=== PATIENT | female | born 1980 | race Caucasian/White ===

== ENCOUNTER 2016-11-27 02:17 | Emergency (ER) | payer BC ==
[~2016-11-27] VITALS: Ht 156.2 cm; Wt 102.8 kg
[~2016-11-27 02:17] MED LIST: ACET325T51 PO; AMIT100T2 PO; OMEP40CA52 PO; PRED10TA PO; PROP80TA4 PO; TOPI100T9 PO
--- OUTSIDE RECORDS SUMMARY | 2016-11-27 02:22 | XMS REPORT | Continuity of Care Document ---
Author Author [facility] Organization [facility] Address Unknown Phone Unavailable Support Name Relationship Address Phone MICHELLE CHO MD Caregiver [address] [place] [address] Unavailable LAURIE SIMMS APRN Caregiver [address] [place] [address] Unavailable ALIREZA KIRKPATRICK Next Of Kin [address] [place] [address] Insurance Providers Guarantor Hero Kirkpatrick Address [address] [place] [address] Email 10-08-16 [facility] Policy Number [id number] Subscriber's Name Hero Kirkpatrick Relationship 18 Self Group Number [id number] Advance Directives Directive Response Recorded Date/Time Advanced Directives Type None 10/10/16 3:55am Chief Complaint and Reason for Visit Chief Complaint Allergic Reaction Reason for Visit Urticaria [id number] Problems Active Problems Medical Problem Onset Date Status Upper respiratory infection Unknown Acute Past Problems Medical Problem Onset Date Migraine Unknown Minor head injury Unknown Reaction, drug, adverse Unknown Sciatica Unknown Urticaria Unknown Medications Current Home Medications Medication Dose Units Route Directions Days Qty Instructions Start Date Acetaminophen 325 Mg Tablet 650 Mg Oral Four Times Daily as needed for Pain 08/23/16 Amitriptyline Hcl 100 Mg Tablet 100 Mg Oral Bedtime 09/18/15 Omeprazole 40 Mg Capsule.dr 40 Mg Oral Bedtime 07/19/16 Prednisone 10 Mg Tablet 0 Oral Taper Qd 18 Tablet 30 mg daily x3 days 20 mg daily x3 days 10 mg daily x2 days 10/10/16 Propranolol Hcl 80 Mg Tablet 80 Mg Oral Twice A Day 09/18/15 Topiramate (Topamax) 100 Mg Tablet 100 Mg Oral Twice A Day Social History Social History Problem Response Recorded Date/Time Onset Date Status Chewing Tobacco Status No 10/10/2016 4:27am Not Applicable Not Applicable Hx Substance Use No 10/10/2016 4:27am Not Applicable Not Applicable Hx Alcohol Use N OCCASIONAL 10/10/2016 4:27am Not Applicable Not Applicable Tobacco Usage smoke 09/18/2015 3:31am Not Applicable Not Applicable Query Response Start Date Stop Date Smoking Status Current every day smoker Hospital Discharge Instructions No hospital discharge instructions. Plan of Care Discharge Date 10/10/16 4:47am Disposition 01 DISCHARGED HOME, SELF-CARE Condition at Discharge Improved Instructions/Education Provided General Allergic Reaction (ED) Prescriptions See Medication Section Referrals LAURIE SIMMS APRN Address: [address] [place] [address] [phone] Additional Instructions/Education Prednisone 10 mg tabs, 3 tabs a day for 3 days, 2 tabs a day for 3 days, 1 TAB a day for 3 days. Ventolin inhaler, 1-2 puffs every 4 hours as needed. Discontinue taking the gabapentin, speak with your medical provider in the morning. Functional Status No functional status results. Allergies, Adverse Reactions, Alerts Allergen Type Severity Reaction Status Last Updated Lisinopril Allergy Intermediate Active 08/23/16 Hydrocodone Allergy Intermediate Active 08/23/16 Methotrexate Allergy Intermediate Active 08/23/16 adhesive tape Allergy Intermediate Active 08/23/16 Immunizations Query Response on File Recorded Date/Time Influenza Vaccine Hx MAY 2016 10/10/16 4:27am Tetanus Diptheria Vaccine History UP TO DATE 10/10/16 4:27am Vital Signs Acute Vital Signs Vital Response Date/Time Temperature (Fahrenheit) 98.7 deg F (96.8 - 99.1) 10/10/2016 4:47am Temperature (Calculated Celsius) 37.83444 degrees C (36.0 - 37.3) 10/10/2016 4:47am Pulse Rate (adult) 87 bpm (60 - 100) 10/10/2016 4:47am Respiratory Rate 20 breaths/min (10 - 20) 10/10/2016 4:47am O2 Sat by Pulse Oximetry 98 % (90 - 100) 10/10/2016 4:47am Blood Pressure 174/82 mm Hg 10/10/2016 4:47am Height (Feet) 5 feet 10/10/2016 3:55am Height (Inches) 1.00 inches 10/10/2016 3:55am Weight (Kilograms) 105.100 kg 10/10/2016 3:55am Body Mass Index (BMI) 43.0 10/10/2016 3:55am Results No known relevant diagnostic tests, laboratory data and/or discharge summary. Procedures Procedure Status Date Provider(s) Ther/proph/diag inj sc/im Completed 07/19/16 Ther/proph/diag inj sc/im Completed 07/19/16 Ther/proph/diag inj sc/im Completed 07/19/16 Emergency dept visit Completed 07/19/16408436"INJECTION, HYDROMORPHONE, UP TO 4 MG" Completed 07/19/16"INJECTION, DIPHENHYDRAMINE HCL, UP TO 50 MG" Completed 07/19/16"INJECTION, KETOROLAC TROMETHAMINE, PER 15 MG" Completed 07/19/16"INJECTION, PROMETHAZINE HCL, UP TO 50 MG" Completed 07/19/16 Ct head/brain w/o dye Completed 08/23/16 Ther/proph/diag inj sc/im Completed 08/23/16 Ther/proph/diag inj sc/im Completed 08/23/16 Emergency dept visit Completed 08/23/16 [id number]"INJECTION, HYDROMORPHONE, UP TO 4 MG" Completed 08/23/16 [id number]"INJECTION, PROMETHAZINE HCL, UP TO 50 MG" Completed 08/23/16 Encounters Encounter Location Arrival/Admit Date Discharge/Depart Date Attending Provider Departed Emergency Room [facility] 10/10/16 3:53am 10/10/16 4: 47am MICHELLE CHO MD Departed Emergency Room [facility] 08/23/16 2:37pm 08/23/16 5: 13pm MICHELLE CHO MD Departed Emergency Room [facility] 07/19/16 12:35pm 07/19/16 3: 01pm MICHELLE JOHNSON MD Recent Diagnosis
--- OUTSIDE RECORDS SUMMARY | 2016-11-27 02:22 | XMS REPORT ---
Author Author Chikis Teixeira [facility] Spec Address [address] [place] [address] Care Team Providers Care Digital Program Manager Name Role Phone Chikis Teixeira Unavailable [phone] PROBLEMS Type Condition ICD9-CM Code [id number] Code Onset Dates Condition Status SNOMED Code Problem Hypertension 401.9 Active 95879426 Problem Generalized anxiety disorder F41.1 Active 01602630 Problem Psoriatic arthritis L40.50 Active 921947299 Problem GERD 530.81 Active 206504336 Problem Seasonal allergies 477.9 Active 434061468 Problem Headache, migraine 346.90 Active 88307372 Problem Psoriasis 696.1 Active 7837307 ALLERGIES Unknown Allergies SOCIAL HISTORY No smoking Hx information available PLAN OF CARE VITAL SIGNS MEDICATIONS Unknown Medications RESULTS No Results PROCEDURES No Known procedures IMMUNIZATIONS No Known Immunizations
--- OUTSIDE RECORDS SUMMARY | 2016-11-27 02:23 | XMS REPORT | Referral Summary ---
Author Author [facility] Organization [facility] Address Unknown Phone Unavailable Care Team Providers Care Medical Records Field Technician Name Role Phone Henri Granados Primary Care Physician [phone] Encounter Date(s): 09/23/16 - 09/23/16 [facility] [address] [place] [address] NANCY Pérez [id number] Discharge Diagnosis: Joint pain Discharge Diagnosis: Psoriasis Discharge Diagnosis: Morbid obesity Discharge Diagnosis: Smoking Discharge Disposition: 01-Home or Self Care Attending Physician: Norma Asif MD Admitting Physician: Norma Asif MD Referring Physician: Tulio Granados MD Vital Signs Most recent to 1 oldest [Reference Range]: Peripheral Pulse 60 bpm Rate [60-100 bpm] (09/23/16 10:22 AM) Blood Pressure 136/90 mmHg [90-140/60-90 mmHg] (09/23/16 10:22 AM) Problem List Condition Effective Dates Status Health Status Informant Morbid Active patient obesity(Confirmed) Allergies, Adverse Reactions, Alerts Substance Reaction Severity Status acetaminophen-HYDROcodone Adverse Reaction Active lisinopril Anaphylaxis Severe Active methotrexate1 Active 1causes migraine Medications amitriptyline 100 mg, Oral, Bedtime (once a day), 0 Refill(s) Start Date: 09/23/16 Status: Ordered omeprazole 40 mg, Oral, Daily, 0 Refill(s) Start Date: 09/23/16 Status: Ordered predniSONE See Instructions, taper dose, 0 Refill(s) Start Date: 09/23/16 Status: Ordered propranolol 80 mg, BID, 0 Refill(s) Start Date: 09/23/16 Status: Ordered Topamax 100 mg oral tablet mg tabs, Oral, BID, 0 Refill(s) Start Date: 09/23/16 Status: Ordered Results Hematology Most recent to 1 oldest [Reference Range]: WBC [4.8-10.8 25.6 10*3/uL 10*3/uL] *HHI* (09/23/16 11:53 AM) RBC [4.00-5.20] 4.59 (09/23/16:53 AM) Hgb [12.0-16.0 13.0 gm/dL gm/dL] (09/23/16:53 AM) Hct [37.0-47.0 %] 41.5 % (09/23/16:53 AM) MCV [82.0-99.0 fL] 90.4 fL (09/23/16:53 AM) MCH [27.0-32.0 pg] 28.3 pg (09/23/16:53 AM) MCHC [32.0-36.0 31.3 gm/dL gm/dL] *LOW* (09/23/16 11:53 AM) RDW [11.5-14.5 %] 15.3 % *HI* (09/23/16 11:53 AM) Platelet [150-400 346 10*3/uL 10*3/uL] (09/23/16 11:53 AM) MPV [8.8-14.8 fL] 11.6 fL (09/23/16 11:53 AM) Neutrophils [51-75 60 % %] (09/23/16 11:53 AM) Lymphocytes [20-46 34 % %] (09/23/16 11:53 AM) Abn Lymph Man [0-5 2 % %] (09/23/16:53 AM) Monocytes [4-11 %] 3 % *LOW* (09/23/16 11:53 AM) Eosinophils [0-4 %] 0 % (09/23/16 11:53 AM) Basophils [0-2 %] 1 % (09/23/16 11:53 AM) Neutro Absolute 15.36 [1.90-7.00] *HI* (09/23/16 11:53 AM) Lymph Absolute 9.22 [0.80-3.30] *HI* (09/23/16 11:53 AM) [place] Absolute 0.77 [0.30-1.00] (09/23/16 11:53 AM) Eos Absolute 0.00 [0.00-0.50] (09/23/16 11:53 AM) Baso Absolute 0.26 [0.00-0.20] *HI* (09/23/16:53 AM) Differential Manual *ABN* (09/23/16:53 AM) Sed Rate [0-23] 6 (09/23/16:53 AM) Chemistry Most recent to 1 oldest [Reference Range]: Sodium Lvl [135-144 144 mEq/L mEq/L] (09/23/16:53 AM) Potassium Lvl 3.4 mEq/L [3.5-5.2 mEq/L] *LOW* (09/23/1653 AM) Chloride [99-111 111 mEq/L mEq/L] (09/23/16:53 AM) CO2 [22-31 mEq/L] 26 mEq/L (09/23/16:53 AM) AGAP [3-20] 7 (09/23/16:53 AM) BUN [7-19 mg/dL] 18 mg/dL (09/23/16:53 AM) Glucose Lvl [70-99 77 mg/dL mg/dL] (09/23/16:53 AM) Creatinine Lvl 0.86 mg/dL [0.57-1.11 mg/dL] (09/23/16:53 AM) eGFR [>60 mL/min] >60 mL/min 1 (09/23/16:53 AM) Calcium Lvl 8.7 mg/dL 2 [8.4-10.2 mg/dL] (09/23/16:53 AM) Albumin Lvl [3.5-5.0 3.4 gm/dL gm/dL] *LOW* (09/23/16:53 AM) Total Protein 6.1 gm/dL [6.1-7.7 gm/dL] (09/23/16:53 AM) Globulin [1.8-4.0 2.7 gm/dL gm/dL] (09/23/16 11:53 AM) ALT [0-55 U/L] 13 U/L (09/23/16:53 AM) AST [5-34 U/L] 8 U/L (2/7/17 11:53 AM) Alk Phos [40-150 69 U/L U/L] (09/23/16 11:53 AM) Bili Total [0.2-1.2 0.3 mg/dL mg/dL] (09/23/16 11:53 AM) Hepatitis B Core Ab Negative Total (09/23/16 11:53 AM) Hep C Ab Negative (09/23/16 11:53 AM) 1Result Comment: Multiply eGFR results by 1.21 for race. 2Result Comment: Please note reference range change effective 09/19/2016. Immunizations No data available for this section Procedures Procedure Date Related Diagnosis Body Site Collection of venous blood by venipuncture 09/23/16 Hx of cholecystectomy Hx of tonsillectomy Social History Social History Type Response Smoking Status Current every day smoker; Type: Cigarettes Assessment and Plan No data available for this section
--- OUTSIDE RECORDS SUMMARY | 2016-11-27 02:23 | XMS REPORT | Continuity of Care Document ---
Author Author [facility] Organization [facility] Address Unknown Phone Unavailable Allergies Active Description Code Type Severity Reaction Onset Reported/Identified Relationship to Patient Clinical Status Yes acetaminophen Drug Allergy Unknown HIVES 09/10/2013 Yes hydrocodone bit Drug Allergy Unknown HIVES 09/10/2013 Yes lisinopril Drug Allergy Unknown HIVES 09/10/2013 Yes Methotrexate Drug Allergy Unknown MIGRAINE VILCHIS 09/10/2013 Yes acetaminophen acetaminophen Drug Allergy Unknown HIVES 02/15/2015 Yes hydrocodone bit hydrocodone bit Drug Allergy Unknown HIVES 06/15/2015 Yes lisinopril lisinopril Drug Allergy Unknown HIVES 06/15/2015 Yes methotrexate methotrexate Drug Allergy Unknown MIGRAINE VILCHIS 06/15/2015 Medications Problems Date Dx Coded Attending Type Code Diagnosis Diagnosed By 09/10/2013 Lucrecia OWENS, Adina Ricks 784.0 HEADACHE Procedures Results Encounters ACCT No. Visit Date/Time Discharge Status Pt. Type Provider Facility Loc./Unit Complaint [id number] 09/10/2013 16:51:00 2013 18:14:00 DIS Emergency Lucrecia OWENS, Adina Hill [facility] W.JOSE [id number] 08/16/2013 17:51:00 2012 18:55:00 DIS Emergency Osmin Spann DO [facility] W[facility]JOSE [id number] 12/31/2012 21:32:00 2012 22:31:00 DIS Emergency Corwin OWENS, Elvira Smith [facility] W.JOSE
[2016-11-27 02:34] VITALS: TEMP 98; Ht 156.2 cm; Wt 102.8 kg
[2016-11-27] MEDS ORDERED: CYCL-375 PO (02:55)
--- NOTE | 2016-11-27 02:55 | ERPDOC ---
Departure Disposition Decision Date: Nov 27, 2016 Disposition Decision Time: 02:53 Disposition: 01 DISCHARGED HOME, SELF-CARE Impression Impression Impression: Primary Impression: Snapping hip syndrome Laterality: right Qualified Codes: M24.851 - Other specific joint derangements of right hip, not elsewhere classified Severity: Moderate Condition: Stable Seen By: Physician only Referrals: LAURIE SIMMS APRN (Family) 1 Week Patient Instructions: Hip Pain (ED) Problems/Meds/Labs Reviewed?: Yes Medications reviewed and manag: Yes Additional Instructions: You have snapping hip syndrome. Heat, muscle relaxers, NSAIDs, and physical therapy all work together to improve this. Follow up with your doctor for referral to physical therapy and to monitor your progress. Follow up care ordered?: Yes Mental Status: Alert, Oriented Scripts Cyclobenzaprine HCl (Cyclobenzaprine HCl) 10 Mg Tablet 10 MG PO TID Y for MUSCLE SPASM, #40 TAB 0 Refills Prov: DECEMBER,MATTEO Tripathi DO 11/27/16 HPI - Lower Extremity General Chief Complaint: Lower Extremity Pain Stated Complaint: R HIP PAIN Time Seen by Provider: 02:45 Source: patient Exam Limitations: no limitations HPI - Lower Extremity Initial Comments 36yo woman presents to the ER tonight with right hip pain. Pt has a h/o hip pain , that improved with heat, muscle relaxers, and physical therapy. Pts sx today are identical to her previous sx. At that time, she was dx'ed with snapping hip syndrome. For the last 5 days, pt has had hip pain, a popping/snapping sensation when sitting from lying, and pain with physical exertion. Sx are markedly improved with rest and sitting on her heated seats in her car. Occurred At: home Onset/Timing: Gradual, Getting worse Duration: 1 week Pain/Severity Scale: Now & Worst: 5/10 Severity: moderate Pain/Injury Location: right hip Method of Injury: unknown Modifying Factors/Context: IMPROVES WITH: immobilization, other (heat), WORSE WITH: jarring, movement Allergies: Coded Allergies: adhesive tape (Verified Allergy, Intermediate, 11/27/16) hydrocodone (Verified Allergy, Intermediate, 11/27/16) lisinopril (Verified Allergy, Intermediate, 11/27/16) methotrexate (Verified Allergy, Intermediate, 11/27/16) Past History Patient Medical History (1) Snapping hip syndrome Past Medical History Metabolic: hypertension ENMT: allergies GI: GERD Neurological: migraines Integumentary: psoriasis Surgical History Denies Surgeries Social History Substance Use Type: does not use Alcohol Intake: none Review of Systems Musculoskeletal General: joint pain, see HPI All other Systems All Other Systems: Reviewed and Negative Physical Exam General General Nourishment: well nourished, well developed, appears stated age, no acute distress, adult, obese General Body Habitus: well groomed Vitals and Pain First Documented Vital Signs Date Time Temp Pulse Resp B/P Pulse Ox O2 Delivery O2 Flow Rate FiO2 11/27/16 02:34 98.0 101 18 134/107 95 Room Air Weight: Kilograms: Height (feet): 5 Height (inches): 1.00 Triage Pain Scale: RN VS reviewed by Provider: Yes Musculoskeletal (brief) Musculoskeletal Brief: NOT FOUND: deformity, loss of motion, spasm, tenderness Comments Pain with hip flexion. Flexion reproduces snapping/popping sensation. Pain along the course of pts psoas muscle. Supervisory Exam Head: atraumatic Eyes: PERRL Nares: no exudate Neck: trachea midline Chest: symmetric Abdomen: non-distended Neurological: no abnormal movements Skin: pink, dry Psychological: alert, appropriate Differential Diagnoses Considering: Cartilage Tear, Contusion, Dislocation, Sprain, Strain Progress Results/Orders Orders Procedure Category Date Status Time Cyclobenzaprine PHA 11/27/16 Complete (Prepack) (Flexeril 03:00 Medications Current ED Medications Cyclobenzaprine HCl (FLEXERIL (PrePack)) 1 pack O ONCE SENT HOME Last administered on 11/27/16t 03:33; Start 11/27/16 at 03:00; Stop 11/27/16 at 03:01 ; Status DC Progress Progress 36yo woman with classic presentation of snapping hip syndrome. Pt has had this before and is well-versed in how to treat it. Will d/c to home with muscle relaxers and instructions on how to care for her symptoms. F/u with PCM. Pt voiced understanding of dx, prognosis, and tx. MATTEO MAIN DO Nov 27, 2016 02:55
[2016-11-27] MEDS ORDERED: CYCLOBENZAPRINE 10MG (PrePack) SENT HOME ONE (03:00)
[2016-11-27 03:35] VITALS: BP 122/75; PULSE 86; RESP 16; O2SAT 100
--- NOTE | 2016-11-27 03:35 | NUR ---
DEPART PT IS DISCHARGED AT THIS TIME, INSTRUCTIONS ARE REVIEWED AND UNDERSTANDING IS VOICED. PT LEAVES AMBULATORY.
--- OUTSIDE RECORDS SUMMARY | 2016-11-27 03:41 | XMS REPORT | Continuity of Care Document ---
Author Author [facility] Organization [facility] Address Unknown Phone Unavailable Allergies [...] Status Pt. Type Provider Facility Loc./Unit Complaint [id number] 09/10/2013 16:51:00 2013 18:14:00 DIS Emergency Lucrecia OWENS, Adina Hill [facility] W.JOSE [id number] 08/16/2013 17:51:00 2012 18:55:00 DIS Emergency Osmin Spann DO [facility] [id number] 12/31/2012 21:32:00 2012 22:31:00 DIS Emergency Corwin OWENS, Elvira Smith [facility]SE
== END 2016-11-27 03:35 | disposition home or self-care (01) ==
LOC: ED 02:17
DX: M24.851 Other specific joint derangements of right hip, not elsewhere classified (principal)